=== PATIENT | male | born 1990 | race Caucasian/White ===

== ENCOUNTER → 2020-11-21 14:48 | Outpatient (BNVA) | payer OTHER, SELFPAY | PROVIDERS: PCP Internal Medicine; Visit Provider Urology | DX: Z30.09 Encounter for other general counseling and advice on contraception (principal); F41.8 Other specified anxiety disorders | CPT/HCPCS: 99202 ==

== ENCOUNTER 2020-12-15 12:50 | Emergency (ER) | payer OTHER, SELFPAY ==
[2020-12-15 12:55] VITALS: BP 156/70; PULSE 73; RESP 18; TEMP 36.8; O2SAT 99; BMI 30.8
--- NOTE | 2020-12-15 14:27 | ED_ITS ---
HPI - Extremity Injury (Lower) General Chief Complaint: Extremity Injury, Lower Stated Complaint: knee/foot pain Time Seen by Provider: 12/15/20 14:27 Source: patient Mode of arrival: ambulatory History of Present Illness HPI Narrative: 30-year-old Male with a past medical history chronic right knee issues presenting to the ED complaining of acute onset right knee pain radiating down to right foot that occurred during physical therapy exercises [employer]. Patient with recent exploratory surgery to right knee and MRI in October that showed partial tear of quads tendon and partial meniscal tear which he has been going to for, followed at [facility]. Reports exercise at PT created shooting/cold sensation in leg which has made him unable to bear weight on RLE. Denies direct trauma/fall or injury, fever, numbness, tingling MD complaint: knee injury Related Data Previous Rx's Medication Instructions Recorded acetaminophen 300 mg-codeine 30 mg 1 tab PO Q8H #7 tab 11/21/20 tablet diazepam 2 mg tablet 2 mg PO DAILY #2 tab 11/21/20 cyclobenzaprine 5 mg PO Q8H PRN 5 Days #14 tab 12/15/20 Allergies Allergy/AdvReac Type Severity Reaction Status Date / Time No Known Allergies Allergy Verified 12/15/20 12:57 Review of Systems Review of Systems: Constitutional: No Fever, No Chills Musculoskeletal: + joint pain, No Myalgias, No Joint Swelling Skin: No Skin Lesions, No rash Neuro: No Weakness, No Numbness, No Paresthesias Yes all other systems are reviewed and are negative [facility] Past Medical History Attestation statement: The following information was validated with the patient. Social History Social History Advance Directives: No Advance Directives Information Provided: No Physical Exam Vital Signs: Vital Signs: Last Vital Signs Temp 98.2 F 12/15/20 12:55 Pulse 73 12/15/20 12:55 Resp 18 12/15/20 12:55 BP 156/70 H 12/15/20 12:55 Pulse Ox 99 12/15/20 12:55 Body Mass Index 30.8 Const: General: cooperative, healthy appearing and comfortable Orientation/consciousness: patient oriented x3 Limitations: no limitations HENMT: Head: Yes normal to inspection Ears: hearing grossly normal bilaterally General nose exam: Normal external nose present Face and sinus: Yes normal facial exam Eyes: General: appearance normal, both eyes and all related structures EOM: EOMs intact bilaterally Neck: Neck: Yes normal visual inspection Resp: Effort & Inspection: normal respiratory effort Cardio: Peripheral pulses: dorsalis pedis present Skin: Rashes: no rashes Wounds: no wounds Neuro: General: patient oriented x3 and tone normal Extrem: Other: Right knee with tenderness to palpation greater lateral aspect and decreased flexion secondary to pain. No appreciable deformity/effusion or cellulitis Right foot with mild plantar tenderness to palpation, no deformity. FROM/NV intact General: Yes normal to inspection MDM - Extremity Injury (Lower) MDM Narrative Medical decision making narrative: 30-year-old Male with a past medical history chronic right knee issues presenting to the ED complaining of acute onset right knee pain radiating down to right foot that occurred during physical therapy exercises [employer]EL[employer]. On exam VSS, NAD/well-appearing, physical exam as above. Likely worsening meniscal or quadriceps tendon tear versus strain. Unlikely fracture/dislocation Will place patient in knee immobilizer, RD has crutches at bedside, discussed you need close follow-up with his orthopedist and likely repeat MRI Discharge Plan Discharge Clinical Impression: Injury of knee Qualifiers: Encounter type: initial encounter Laterality: right Qualified Code(s): S89.91XA - Unspecified injury of right lower leg, initial encounter Patient Disposition: Home, Self-Care Instructions: Knee Pain (ED) Additional Instructions: Wear knee immobilizer at home as needed for stabilization. Bear weight as tolerated Use crutches as needed Continue to use ibuprofen and Tylenol at home for pain/swelling Flexeril as a muscle relaxer, take at night as it makes you drowsy, do not drive, drink alcohol, or operate machinery while taking it Call your orthopedic surgeon for follow-up as soon as possible If pain persists or worsens, becomes unbearable, of weakness, or fever return to the ED Prescriptions: New cyclobenzaprine 5 mg tablet 5 mg PO Q8H PRN (Reason: pain (scale score 7-10)) 5 Days Qty: 14 RF: 0 No Action acetaminophen-codeine 300-30 mg tablet 1 tab PO Q8H Qty: 7 RF: 0 diazepam [Valium] 2 mg tablet 2 mg PO DAILY Qty: 2 RF: 0 Referrals: Jed Ronquillo MD [Physician] - 1 week Interventions: ED Discharge Assessment Last Done: 12/15/20 14:35 Discharge Date/Time: 12/15/20 14:38
== END 2020-12-15 14:38 | disposition home or self-care (01) ==
PROVIDERS: Emergency Provider Emergency Medicine Emergency Medical Services; PCP Internal Medicine Sports Medicine
DX: S89.91XA Unspecified injury of right lower leg, initial encounter (principal); X58.XXXA Exposure to other specified factors, initial encounter; Y93.9 Activity, unspecified; Y92.9 Unspecified place or not applicable; Y99.9 Unspecified external cause status
CPT/HCPCS: 99283

== ENCOUNTER → 2021-02-07 10:49 | Outpatient (BNVA) | payer OTHER, SELFPAY | PROVIDERS: PCP Internal Medicine Sports Medicine; Visit Provider Urology | DX: Z30.2 Encounter for sterilization (principal); F41.8 Other specified anxiety disorders | CPT/HCPCS: 55250 ==